=== PATIENT | male | born 1985 | race Caucasian/White ===

== ENCOUNTER 2022-05-04 20:57 | Emergency (ER) | payer MEDICAID ==
[~2022-05-04] VITALS: Ht 172.7 cm; Wt 79.4 kg
[2022-05-04 21:00] VITALS: BP 155/94
--- NOTE | 2022-05-04 21:00 | NUR ---
Pt on hard restraints brought in by PD and medics. Pt placed on bed and kept on hard restraints. PD placed pt on 5150 hold.
--- NOTE | 2022-05-04 21:01 | NUR ---
PT TO BED 07
--- NOTE | 2022-05-04 21:03 | NUR ---
[facility] AT BEDSIDE.
--- NOTE | 2022-05-04 21:04 | NUR ---
Pt being combative and cursing. Allowed us to do ekg, covid swab, and blood work. Refusing to provide urine at this time. VSS. Bed in lowest position. Skin intact.
--- NOTE | 2022-05-04 21:05 | NUR ---
DR. Eisenberg at bedside examining pt.
[2022-05-04 21:34] LABS: BASOPHILS % (AUTO) 0.4 % (0.0-2.0); EOSINOPHILS % (AUTO) 0.4 % (0.0-4.0); HEMATOCRIT 41.6 % (36-52); HEMOGLOBIN 14.3 g/dL (12.0-18.0); LYMPHOCYTES # (AUTO) 4.4 K/uL (2.0-11.5); LYMPHOCYTES % (AUTO) 40.1 % (20.5-51.1); MEAN CORPUSCULAR HEMOGLOBIN 33 pg (27-31); MEAN CORPUSCULAR HGB CONC 35 g/dL (33-37); MEAN CORPUSCULAR VOLUME 95.9 fL (80-94); MONOCYTES # (AUTO) 0.6 K/uL (0.8-1.0); MONOCYTES % (AUTO) 5.1 % (1.7-9.3); NEUTROPHILS # (AUTO) 5.9 K/uL (1.8-7.7); PLATELET COUNT (AUTO) 162 K/uL (140-450); RED BLOOD CELL COUNT(AUTO) 4.33 MIL/uL (4.20-6.10); RED CELL DISTRIBUTION WIDTH 14.3 % (11.6-13.7)
[2022-05-04 21:47] LABS: ANION GAP 16.2 (8-16); CARBON DIOXIDE 20.3 mmol/L (21-32); CREATININE 0.8 mg/dL (0.6-1.3); POTASSIUM 3.5 mmol/L (3.5-5.1); TOTAL BILIRUBIN 0.3 mg/dL (0.0-1.0)
[2022-05-04] MEDS ORDERED: HALOPERIDOL IM 5 MG/ML VIAL IM ONE (21:50)
[2022-05-04] MEDS ORDERED: LORazepam 2 MG/ML VIAL IM ONE (21:50)
--- NOTE | 2022-05-04 23:51 | NUR ---
CASA SISTER [phone].
--- NOTE | 2022-05-05 01:00 | NUR ---
Hard restraints removed. Pt sleeping no s/s of distress.
--- NOTE | 2022-05-05 05:50 | NUR ---
Urine collected and sent to lab.
[2022-05-05 06:34] LABS: BARBITURATE, URINE NEGATIVE ng/ml (NEG <=200); BENZODIAZEPINE, URINE POSITIVE ng/mL (NEG <=200); COCAINE, URINE NEGATIVE ng/mL (NEG <=300)
[2022-05-05 06:35] LABS: CANNABINOID, URINE POSITIVE ng/mL (NEG <=50); OPIATE, URINE NEGATIVE ng/mL (NEG <=2000); PHENCYCLIDINE SCREEN,URINE NEGATIVE ng/mL (NEG <=25)
--- NOTE | 2022-05-05 07:15 | NUR ---
REPORT RECEIVED FROM STEFFI WRIGHT. ASSUMED CARE AT THIS TIME
--- NOTE | 2022-05-05 07:30 | NUR ---
pt in view and at rest w/ eyes closed . respirations even and unlabored. bed at lowest position, bed rails upx2.
--- NOTE | 2022-05-05 08:30 | NUR ---
36YO MALE PT JONI FROM HOME ON 5150 HOLD. PER PD, 911 WAS CALLED BY SISTER AFTER PT STATED HE WANTED TO "KILL HIMSELF" BY CUTTING SELF W/ KNIFE. RECEIVED PT W/O RESTRAINTS. PT COOPERATIVE , SPEAKING CLEAR IN FULL SENTENCES. DENIES SI AT THIS TIME. -HALLUCINATIONS. PT AAOX4, IN VIEW. BED AT LOWEST POSITION, BED RAILS UPX2. ROOM STRIPPED OF POTENTIONAL HARMFUL ITEMS HX:DENIES NKA MEDS: OTC PAMELA- anxiety hold placed on 05/04/22 @2006
--- NOTE | 2022-05-05 08:30 | NUR ---
pt provided with breakfast. pt awake and eating in bed
--- NOTE | 2022-05-05 10:25 | NUR ---
PT ON TELEPSYCH CALL W/ MD RAZO
--- NOTE | 2022-05-05 10:44 | NUR ---
PT CONTINUED ON HOLD AND RECOMMENED FOR TX PER MD RAZO
--- NOTE | 2022-05-05 11:51 | NUR ---
pt provided w/ lunch. pt awake and eating in bed
--- NOTE | 2022-05-05 11:59 | NUR ---
call received from pt sister CASA , updated on pt status
[2022-05-05] MEDS ORDERED: LORazepam 2 MG/ML VIAL ONE (13:47)
[2022-05-05] MEDS ORDERED: LORazepam 1 MG TAB PO ONE (14:10)
[2022-05-05 14:30] VITALS: BP 124/76
--- NOTE | 2022-05-05 14:30 | NUR ---
Patient to be transferred to [facility]. Is being transferred due to INPATIENT PSYCH. Receiving facility has accepting physician and available space. ER physician has signed transfer form. Patient or responsible libertarian has agreed to transfer and signed form. Patient belongings inventoried and will be sent with patient. Copy of nursing notes, lab reports, EKG, Physicians Orders to be sent with patient. Report called to JEFF WRIGHT at receiving facility. [facility] ambulance service AT BEDSIDE. ETA TO FACILITY 40-60MIN.
--- NOTE | 2022-05-05 14:33 | NUR ---
Chart checked and completed. The patient's care was reviewed and supervised by Sugey Tineo RN.
== END 2022-05-05 14:30 ==
LOC: MED 20:57
DX: R45.851 Suicidal ideations (principal); Z20.822 Contact with and (suspected) exposure to COVID-19; F10.129 Alcohol abuse with intoxication, unspecified; Y90.9 Presence of alcohol in blood, level not specified
CPT/HCPCS: 36415; 80053; 80305; 85025; 87426; 87635; 93005; 96372; 99285; C9803; G0482; J1630; J2060

== ENCOUNTER 2023-02-26 23:43 | Emergency (ER) | payer MEDICAID, OTHER ==
[~2023-02-26] VITALS: Ht 170.2 cm; Wt 86.2 kg
[2023-02-26 23:45] VITALS: BP 146/92; PULSE 96; RESP 20; TEMP 97.4
[2023-02-27] MEDS ORDERED: ACETAMINOPHEN EXTRA STRENGTH 500 MG TAB PO ONE (02:15)
[2023-02-27] MEDS ORDERED: KETOROLAC 30 MG/ML VIAL IM ONE (02:15)
[2023-02-27] MEDS ORDERED: NAPR-1704 PO (02:29)
[2023-02-27] MEDS ORDERED: ACET-10509 PO (02:29)
[2023-02-27 02:52] VITALS: BP 146/92; PULSE 96; RESP 20; TEMP 97.4
== END 2023-02-27 02:53 | disposition home or self-care (01) ==
LOC: MED 23:43
DX: S00.83XA Contusion of other part of head, initial encounter (principal); Y08.89XA Assault by other specified means, initial encounter; Y93.89 Activity, other specified; Y92.89 Other specified places as the place of occurrence of the external cause; Y99.8 Other external cause status
CPT/HCPCS: 96372; 99283; J1885

== ENCOUNTER 2023-03-08 15:11 | Emergency (ER) | payer OTHER ==
[~2023-03-08] VITALS: Ht 172.7 cm; Wt 95.3 kg
[~2023-03-08 15:11] MED LIST: ACET-10509 PO; NAPR-1704 PO
[2023-03-08 15:35] VITALS: BP 128/80; PULSE 101; RESP 14; TEMP 98.2; O2SAT 98
[2023-03-08] MEDS ORDERED: NAPR-1704 PO (17:32)
[2023-03-08] MEDS ORDERED: ACET-10509 PO (17:32)
[2023-03-08] MEDS ORDERED: KETOROLAC 30 MG/ML VIAL IM ONE (18:00)
[2023-03-08 18:10] VITALS: BP 122/80; PULSE 99; RESP 14; TEMP 98.2; O2SAT 99
== END 2023-03-08 18:10 | disposition home or self-care (01) ==
LOC: MED 15:11
DX: S62.314A Displaced fracture of base of fourth metacarpal bone, right hand, initial encounter for closed fracture (principal); S62.336A Displaced fracture of neck of fifth metacarpal bone, right hand, initial encounter for closed fracture; I10 Essential (primary) hypertension; Z79.899 Other long term (current) drug therapy; Z79.1 Long term (current) use of non-steroidal anti-inflammatories (NSAID); Y04.0XXA Assault by unarmed brawl or fight, initial encounter; Y92.89 Other specified places as the place of occurrence of the external cause; Y93.89 Activity, other specified; Y99.8 Other external cause status
CPT/HCPCS: 29125; 73130; 96372; 99283; J1885

== ENCOUNTER 2024-02-15 11:56 | Emergency (ER) | payer OTHER ==
[~2024-02-15] VITALS: Ht 170.2 cm; Wt 106.6 kg
[~2024-02-15 11:56] MED LIST changes: -ACET-10509 PO; +ACET500T99 PO
[2024-02-15 12:07] VITALS: BP 122/67; PULSE 96; RESP 14; TEMP 98.8; O2SAT 86
[2024-02-15] MEDS: NACL 0.9% 2,000 ML IV ONE (12:38)
[2024-02-15 12:47] LABS: BASOPHILS % (AUTO) 0.6 % (0.0-2.0); EOSINOPHILS % (AUTO) 0.4 % (0.0-4.0); HEMATOCRIT 44.6 % (36-52); HEMOGLOBIN 14.8 g/dL (12.0-18.0); LYMPHOCYTES # (AUTO) 2.8 K/uL (2.0-11.5); LYMPHOCYTES % (AUTO) 46.2 % (20.5-51.1); MEAN CORPUSCULAR HEMOGLOBIN 32 pg (27-31); MEAN CORPUSCULAR HGB CONC 33 g/dL (33-37); MEAN CORPUSCULAR VOLUME 95.2 fL (80-94); MONOCYTES # (AUTO) 0.3 K/uL (0.8-1.0); MONOCYTES % (AUTO) 5.7 % (1.7-9.3); NEUTROPHILS # (AUTO) 2.9 K/uL (1.8-7.7); NEUTROPHILS % (AUTO) 47.1 % (42.2-75.2); PLATELET COUNT (AUTO) 175 K/uL (140-450); RED BLOOD CELL COUNT(AUTO) 4.68 MIL/uL (4.20-6.10); RED CELL DISTRIBUTION WIDTH 15.2 % (11.6-13.7); WHITE BLOOD COUNT (AUTO) 6.1 K/uL (4.8-10.8)
[2024-02-15 12:57] LABS: ANION GAP 20.4 (8-16); CARBON DIOXIDE 22.1 mmol/L (21-32); CREATININE 0.9 mg/dL (0.6-1.3); POTASSIUM 3.5 mmol/L (3.5-5.1)
[2024-02-15 13:37] LABS: ALCOHOL, BLOOD 424 mg/dL (<10)
[2024-02-15 14:19] VITALS: BP 122/67; PULSE 96; RESP 14; TEMP 98.8; O2SAT 93
== END 2024-02-15 14:19 | disposition home or self-care (01) ==
LOC: MED 11:56
DX: J96.01 Acute respiratory failure with hypoxia (principal); F10.129 Alcohol abuse with intoxication, unspecified; I10 Essential (primary) hypertension; Z79.899 Other long term (current) drug therapy; Y90.8 Blood alcohol level of 240 mg/100 ml or more
CPT/HCPCS: 36415; 71045; 80048; 83880; 84484; 85025; 93005; 96360; 99291; G0482; J7030

== ENCOUNTER 2024-02-17 12:14 | Emergency (ER) | payer OTHER ==
[~2024-02-17] VITALS: Ht 170.2 cm; Wt 117.9 kg
[2024-02-17 12:22] VITALS: BP 140/80; PULSE 101; RESP 22; TEMP 98.7; O2SAT 100
[2024-02-17 14:38] VITALS: O2SAT 100
[2024-02-17 16:37] VITALS: BP 135/80; PULSE 88; RESP 16; TEMP 98.7; O2SAT 100
== END 2024-02-17 16:37 | disposition home or self-care (01) ==
LOC: MED 12:14
DX: F10.129 Alcohol abuse with intoxication, unspecified (principal); I10 Essential (primary) hypertension; Z79.899 Other long term (current) drug therapy; Y90.9 Presence of alcohol in blood, level not specified
CPT/HCPCS: 99283